=== PATIENT | female | born 1945 | race Two or more races ===

== ENCOUNTER 2019-04-25 10:39 | Emergency (ER) | payer SELFPAY ==
[~2019-04-25] VITALS: Ht 154.9 cm; Wt 68.0 kg
[2019-04-25 11:30] VITALS: BP 124/47
[2019-04-25] MEDS ORDERED: HYDROcodone-ACET 5/325MG TAB PO ONE (12:00)
== END 2019-04-25 12:24 | disposition home or self-care (01) ==
LOC: ER 10:39
DX: R07.9 Chest pain, unspecified (principal); M54.9 Dorsalgia, unspecified; I10 Essential (primary) hypertension; R51 Headache; V43.52XA Car driver injured in collision with other type car in traffic accident, initial encounter; Y93.89 Activity, other specified; Y92.89 Other specified places as the place of occurrence of the external cause; Y99.8 Other external cause status
CPT/HCPCS: 71046; 93005

== ENCOUNTER 2023-03-15 16:37 | Emergency (ER) | payer MEDICARE, OTHER ==
[~2023-03-15] VITALS: Ht 162.6 cm; Wt 65.9 kg
[2023-03-15 19:42] VITALS: BP 149/71; PULSE 62; RESP 18; TEMP 98; O2SAT 98
== END 2023-03-15 19:46 | disposition home or self-care (01) ==
LOC: EDUNIT# 16:37 → ER 16:37 → EDBD 16:37 → ER 19:46
DX: S40.212A Abrasion of left shoulder, initial encounter (principal); M54.2 Cervicalgia; R10.30 Lower abdominal pain, unspecified; I10 Essential (primary) hypertension; V49.9XXA Car occupant (driver) (passenger) injured in unspecified traffic accident, initial encounter; Y93.89 Activity, other specified; Y92.89 Other specified places as the place of occurrence of the external cause; Y99.8 Other external cause status
CPT/HCPCS: 70450; 71250; 72125; 74176